=== PATIENT | male | born 1965 | race Caucasian/White ===

== ENCOUNTER 2017-10-27 09:42 | Outpatient (CLI) | payer BC, OTHER ==
[2017-10-27 14:47] LABS: CALCIUM 9.2 mg/dL (8.5-10.3); CREATININE 0.9 mg/dL (0.6-1.2); POTASSIUM 3.9 mmol/L (3.5-5.0)
== END 2017-10-27 09:43 | disposition home or self-care (01) ==
LOC: LAB.WCP 09:42
PROVIDERS: ATTEND Family Medicine
DX: I10 Essential (primary) hypertension (principal)
CPT/HCPCS: 36415; 80048

== ENCOUNTER 2018-03-09 10:28 | Day surgery (SDC) | payer OTHER ==
[2018-03-09] MEDS ORDERED: LACTATED RINGERS 1,000 ML IV ONE (10:51)
[2018-03-09] MEDS ORDERED: MIDAZOLAM 2 MG/2 ML VIAL IVP ONE (11:20)
[2018-03-09] MEDS ORDERED: fentaNYL 250 MCG/5 ML VIAL IVP ONE (11:20)
[2018-03-09 11:47] VITALS: BP 115/74
== END 2018-03-09 10:29 | disposition home or self-care (01) ==
LOC: SDS 10:28
PROVIDERS: ATTEND Surgery
PROC: 0DBN8ZX Excision of Sigmoid Colon, Via Natural or Artificial Opening Endoscopic, Diagnostic (ICD-10-PCS; principal; 2018-03-09 11:30)
DX: Z12.11 Encounter for screening for malignant neoplasm of colon (principal); K57.30 Diverticulosis of large intestine without perforation or abscess without bleeding; D12.5 Benign neoplasm of sigmoid colon; I10 Essential (primary) hypertension
CPT/HCPCS: 45385; J3010; J7120; 88305

== ENCOUNTER 2019-08-08 08:00 | Outpatient (CLI) | payer OTHER ==
[2019-08-08 18:46] LABS: CREATININE 0.9 mg/dL (0.6-1.2)
== END 2019-08-08 23:59 | disposition home or self-care (01) ==
LOC: LAB.WCP 08:00
PROVIDERS: ATTEND Family Medicine
DX: H02.401 Unspecified ptosis of right eyelid (principal)
CPT/HCPCS: 36415; 82565

== ENCOUNTER → 2019-08-08 | Outpatient (CLI) | payer OTHER ==
--- NOTE | 2019-08-09 11:22 | XRAY Report ---
Reason: RIGHT EYELID PTOSIS Procedure Date: 08/08/2019 Accession Number: [id number] / [id number] Procedure: WCP - Chest 2 View X-Ray CPT Code: 30790 FULL RESULT: EXAM: CHEST RADIOGRAPHY EXAM DATE: 08/08/2019 01:40 PM. CLINICAL HISTORY: Minnie syndrome. COMPARISON: None. TECHNIQUE: 2 views. FINDINGS: Lungs/Pleura: No focal opacities evident. No pleural effusion. No pneumothorax. Normal volumes. Mediastinum: Heart and mediastinal contours are unremarkable. Other: None. IMPRESSION: Normal 2-view chest radiography. [facility]
== END ==
LOC: DI.WCP 08:00 → EDSTATUS 12:29
PROVIDERS: ATTEND Family Medicine
DX: H02.401 Unspecified ptosis of right eyelid (principal)
CPT/HCPCS: 71046

== ENCOUNTER 2019-08-19 17:20 | Outpatient (CLI) | payer OTHER ==
[2019-08-19] MEDS ORDERED: GADOBUTROL 10 MMOL/10 ML VIAL ONE (17:41)
[2019-08-19] MEDS ORDERED: GADOBUTROL 10 MMOL/10 ML VIAL IVP ONE (18:32)
--- NOTE | 2019-08-19 19:38 | MRI Report ---
Reason: ACQ EYELID PTOSIS RT Procedure Date: 08/19/2019 Accession Number: [id number] / [id number] Procedure: MRI - Brain W/WO CPT Code: FULL RESULT: EXAM: MRI BRAIN WITHOUT AND WITH CONTRAST, WITH ATTENTION TO THE ORBITS EXAM DATE: 08/19/2019 06:49 PM. CLINICAL HISTORY: ACQ EYELID PTOSIS RT. COMPARISON: None. TECHNIQUE: Multiplanar, multisequence T1-weighted and fluid-sensitive MR sequences of the brain were performed before and after administration of intravenous contrast. Sequences optimized for routine evaluation. Other: None. IV Contrast: Gadavist, 10 mL. FINDINGS: Brain Volume: Normal for age. Parenchyma: No acute hemorrhage, mass, or infarct. No white matter lesions identified. No abnormal enhancement. Ventricles/Cisterns: No hydrocephalus. No abnormal extra-axial fluid collection or hemorrhage. Orbits: The globes are intact. The optic nerves, optic chiasm and optic radiations are symmetric and normal in appearance. The extraocular muscles are symmetric and normal in appearance. No pathologic enhancement or mass lesion is identified in the orbits. Sella Turcica: The pituitary gland, cavernous sinuses, suprasellar cistern and optic chiasm are unremarkable. IAC: Symmetric and unremarkable. Vasculature: Normal signal flow void is seen in the major arterial structures at the skull base. The dural sinuses are patent and enhance normally. Sinuses: No acute sinus disease. Bones: No focal pathologic appearing marrow signal changes. Other: None. IMPRESSION: 1. No evidence of acute intracranial pathology. 2. Unremarkable MR appearance of the orbits. [facility]
== END 2019-08-19 17:21 | disposition home or self-care (01) ==
LOC: DI 17:20
PROVIDERS: ATTEND Family Medicine
DX: H02.401 Unspecified ptosis of right eyelid (principal)
CPT/HCPCS: 70553; A9585

== ENCOUNTER 2023-01-02 16:43 | Outpatient (CLI) | payer BC ==
--- NOTE | 2023-01-02 21:14 | XRAY Report ---
PROCEDURE: Knee 2 View LT INDICATIONS: PAIN IN LEFT KNEE TECHNIQUE: 2 views of the left knee(s) were acquired. COMPARISON: None. FINDINGS: Bones: No fractures or dislocations. Tiny osteophytes. No suspicious bony lesions. Soft tissues: No joint effusion. No suspicious soft tissue calcifications. IMPRESSION: Minimal degenerative change. Reviewed by: Jayme Go MD on 01/02/2023 9:13 PM [facility] Approved by: Jayme Go MD on 01/02/2023 9:13 PM [facility] Station ID: [id number]
== END 2023-01-02 16:44 | disposition home or self-care (01) ==
LOC: DI 16:43
PROVIDERS: ATTEND Nurse Practitioner
DX: M17.12 Unilateral primary osteoarthritis, left knee (principal)

== ENCOUNTER 2024-07-07 12:15 | Outpatient (CLI) | payer BC ==
[2024-07-07 18:33] LABS: BASOPHILS # (AUTO) 0.1 10^3/uL (0.0-0.1); BASOPHILS % (AUTO) 0.7 %; EOSINOPHILS # (AUTO) 0.1 10^3/uL (0.0-0.7); EOSINOPHILS % (AUTO) 1.3 %; HCT - HEMATOCRIT 43.2 % (42.0-52.0); HGB - HEMOGLOBIN 14.8 g/dL (14.0-18.0); LYMPHOCYTES # (AUTO) 1.1 10^3/uL (1.5-3.5); LYMPHOCYTES % (AUTO) 14.6 %; MEAN CORPUSCULAR HEMOGLOBIN 31.2 pg (27.0-31.0); MEAN CORPUSCULAR HGB CONC 34.3 g/dL (32.0-36.0); MEAN CORPUSCULAR VOLUME 91.1 fL (80.0-94.0); MEAN PLATELET VOLUME 10.6 fL (7.4-11.4); MONOCYTES # (AUTO) 0.6 10^3/uL (0.0-1.0); NEUTROPHILS # (AUTO) 5.8 10^3/uL (1.5-6.6); NEUTROPHILS % (AUTO) 75.3 %; PLT - PLATELET COUNT 226 10^3/uL (130-450); RED BLOOD COUNT 4.74 10^6/uL (4.70-6.10); RED CELL DISTRIBUTION WIDTH 12.7 % (12.0-15.0); WHITE BLOOD COUNT 7.7 x10^3/uL (4.8-10.8)
[2024-07-07 19:42] LABS: BUN - BLOOD UREA NITROGEN 15 mg/dL (6-20); CALCIUM 9.7 mg/dL (8.5-10.3); CARBON DIOXIDE - CO2 29 mmol/L (21-32); CHLORIDE 101 mmol/L (101-111); CHOL/HDL RATIO 5.5 (<5.0); CHOLESTEROL 232 mg/dL; CREATININE 0.9 mg/dL (0.6-1.3); GFR - MDRD 87 (>89); GLUCOSE 152 mg/dL (74-104); HDL CHOLESTEROL 42 mg/dL; LDL CHOLESTEROL,CALCULATED 152 mg/dL; LDL/HDL RATIO 3.6 (<3.6); SODIUM 135 mmol/L (135-145); TRIGLYCERIDES 190 mg/dL; VLDL CHOLESTEROL 38 mg/dL
== END 2024-07-07 12:30 | disposition home or self-care (01) ==
LOC: LAB.N 12:15
PROVIDERS: ATTEND Physician Assistant Medical
DX: R03.0 Elevated blood-pressure reading, without diagnosis of hypertension (principal)
CPT/HCPCS: 36415; 80048; 80061; 83721; 85025